=== PATIENT | male | born 1965 | race Hispanic/Latino ===

== ENCOUNTER 2018-07-13 15:18 | Emergency (ER) | payer SELFPAY ==
[2018-07-13 15:42] VITALS: RESP 20
--- NOTE | 2018-07-13 16:11 | C.PDOC ---
History Of Present Illness 53 year old male presents to the ED requesting ETOH detox. Admits his last ETOH use was this morning. Pt s/p withdrawal seizure prior to arrival. Denies other drug use, SI, HI, and any other associated symptoms. REQUESTING ETOH DETOX. LAST USE THIS MORNING. PS S/P WITHDRAWAL SZ MEAT SMOKER. DENIES OTHER DRUG USE. EXAM NONTOXIC HEENT NO TONGUE FASIC PSYCH CALM COOPERATIVE CLEAR SPEECH NO ACUTE INTOX; NO SI/SA NEURO NO TREMOR GAIT STEADY REMAINDER NEG <Siena Alicea - Last Filed: 07/13/18 18:47> History Per: Patient History/Exam Limitations: intoxication Modifying Factor(s): Alcohol Recent travel outside of the [place]: No <Siena Alicea - Last Filed: 07/13/18 18:47> <Olaf Faustin - Last Filed: 07/13/18 19:45> Time Seen by Provider: 07/13/18 16:05 Chief Complaint (Nursing): Substance Abuse Past Medical History Reviewed: Historical Data, Nursing Documentation, Vital Signs Vital Signs: Last Vital Signs Temp 98.2 F 07/13/18 15:41 Pulse 80 07/13/18 15:41 Resp 20 07/13/18 15:41 BP 157/94 H 07/13/18 15:41 Pulse Ox 117 H 07/13/18 15:41 Family History: States: Unknown Family Hx - Social History Hx Alcohol Use: Yes Hx Substance Use: No <Siena Alicea - Last Filed: 07/13/18 18:47> Vital Signs: Last Vital Signs Temp 98.4 F 07/13/18 19:33 Pulse 123 H 07/13/18 19:33 Resp 20 07/13/18 15:41 BP 159/97 H 07/13/18 19:33 Pulse Ox 96 07/13/18 19:33 <Olaf Faustin - Last Filed: 07/13/18 19:45> Review Of Systems Except As Marked, All Systems Reviewed And Found Negative. Neurological: Positive for: Seizures (withdrawal seizure.). Negative for: Other (no other drug use. ) Psych: Negative for: Suicidal ideation, Other (HI. ) <Siena Alicea - Last Filed: 07/13/18 18:47> Physical Exam - Physical Exam Appears: Non-toxic Skin: Warm, Dry Head: Atraumatic, Normacephalic Eye(s): bilateral: Normal Inspection Oral Mucosa: Moist Tongue: No Other (fasciculations.) Neck: Normal ROM Chest: Symmetrical, No Deformity Cardiovascular: Rhythm Regular, No Murmur Respiratory: Normal Breath Sounds, No Rales, No Rhonchi, No Wheezing, No Other (NARD) Gastrointestinal/Abdominal: Normal Exam, Soft, No Tenderness Extremity: Bilateral: Atraumatic, Normal Color And Temperature Neurological/Psych: Oriented x3, Normal Speech (clear speech. ), No Other (CALM. COOPERATIVE. NO ACUTE INTOX. NO TREMOR.) <Siena Alicea - Last Filed: 07/13/18 18:47> ED Course And Treatment - Laboratory Results Result Diagrams: 07/13/18 16:46 07/13/18 16:46 O2 Sat by Pulse Oximetry: 117 <Siena Alicea - Last Filed: 07/13/18 18:47> - Laboratory Results Result Diagrams: 07/13/18 16:46 07/13/18 16:46 Lab Results: Total Bilirubin 0.5 mg/dL (0.2-1.3) 07/13/18 16:46 AST 159 U/L (17-59) H 07/13/18 16:46 ALT 111 U/L (21-72) H 07/13/18 16:46 Alkaline Phosphatase 77 U/L (38-126) 07/13/18 16:46 Total Protein 7.7 g/dL (6.3-8.3) 07/13/18 16:46 Albumin 5.0 g/dL (3.5-5.0) 07/13/18 16:46 Globulin 2.8 gm/dL (2.2-3.9) 07/13/18 16:46 Albumin/Globulin Ratio 1.8 (1.0-2.1) 07/13/18 16:46 Urine Color Yellow (YELLOW) 07/13/18 17:06 Urine Clarity Hazy (Clear) 07/13/18 17:06 Urine pH 5.0 (5.0-8.0) 07/13/18 17:06 Ur Specific Bussey 1.016 (1.003-1.030) 07/13/18 17:06 Urine Protein 2+ mg/dL (NEGATIVE) H 07/13/18 17:06 Urine Glucose (UA) Normal mg/dL (Normal) 07/13/18 17:06 Urine Ketones 1+ mg/dL (NEGATIVE) H 07/13/18 17:06 Urine Blood 2+ (NEGATIVE) H 07/13/18 17:06 Urine Nitrate Negative (NEGATIVE) 07/13/18 17:06 Urine Bilirubin Negative (NEGATIVE) 07/13/18 17:06 Urine Urobilinogen Normal mg/dL (0.2-1.0) 07/13/18 17:06 Ur Leukocyte Esterase Neg Marissa/uL (Negative) 07/13/18 17:06 Urine WBC (Auto) 3 /hpf (0-5) 07/13/18 17:06 Urine RBC (Auto) 2 /hpf (0-3) 07/13/18 17:06 Hyaline Casts 11-20 /lpf (0-2) H 07/13/18 17:06 Reevaluation Time: 19:45 - Physician Consult Information Outcome Of Conversation: d/w Crisis, they defer detox for this pt. safe for d/c <Olaf Faustin - Last Filed: 07/13/18 19:45> Progress - Re-Evaluation Re-evaluation Note: 07/13/18 16:07 D/W AES WILL EVAL - Data Reviewed Data Reviewed: Lab, Old records <Siena Alicea - Last Filed: 07/13/18 18:47> Medical Decision Making Medical Decision Making: Initial plan: -Blood sent. -Ativan -Librium -Urinalysis <Siena Alicea - Last Filed: 07/13/18 18:47> Disposition Counseled Patient/Family Regarding: Studies Performed, Diagnosis - Disposition Disposition Time: 19:00 <Siena Alicea - Last Filed: 07/13/18 18:47> Doctor Will See Patient In The: Office <Olaf Faustin - Last Filed: 07/13/18 19:45> - Disposition Condition: GOOD Forms: [facility] (Salvadorean) - Clinical Impression Clinical Impression: Alcohol abuse - Scribe Statement The provider has reviewed the documentation as recorded by the Scribe (Julisa Mcdonald) Provider Attestation: All medical record entries made by the Scribe were at my direction and personally dictated by me. I have reviewed the chart and agree that the record accurately reflects my personal performance of the history, physical exam, medical decision making, and the department course for this patient. I have also personally directed, reviewed, and agree with the discharge instructions and disposition. <Siena Alicea - Last Filed: 07/13/18 18:47> Physician Patient Turnover Patient Signed Over To: Olaf Faustin Handoff Comments: VERONICA JACOBS, DISPO <Siena Alicea - Last Filed: 07/13/18 18:47>
[2018-07-13 16:49] LABS: BASO % 0.7 % (0.0-2.0); EOS # 0.1 K/uL (0.0-0.7); EOS % 0.8 % (0.0-4.0); HEMOGLOBIN 14.6 g/dL (12.0-18.0); LYMPH # 1.6 K/uL (1.0-4.3); LYMPH % 23.6 % (20.0-40.0); MEAN CELL VOLUME 103.3 fL (80.0-94.0); MEAN CORPUSCULAR HEMOGLOBIN 33.9 pg (27.0-31.0); MEAN CORPUSCULAR HGB CONC 32.8 g/dL (33.0-37.0); MEAN PLATELET VOLUME 7.1 fL (7.2-11.7); MONO # 0.3 K/uL (0.0-0.8); MONO % 5.1 % (0.0-10.0); NEUT # 4.7 K/uL (1.8-7.0); NEUT % 69.8 % (50.0-75.0); NRBC % 0.1 % (0.0-2.0); RBC 4.33 Mil/uL (4.40-5.90); RED CELL DISTRIBUTION WIDTH 13.2 % (11.5-14.5); WHITE BLOOD COUNT 6.7 K/uL (4.8-10.8)
[2018-07-13 17:02] LABS: ALB/GLOB RATIO 1.8 (1.0-2.1); ALT/SGPT 111 U/L (21-72); AST/SGOT 159 U/L (17-59); BLOOD UREA NITROGEN 11 mg/dL (9-20); CALCIUM 8.9 mg/dl (8.6-10.4); GFR NON-AFRICAN AMERICAN > 60
[2018-07-13 17:15] LABS: URINE BILIRUBIN NEGATIVE (NEGATIVE); URINE BLOOD 2+ (NEGATIVE); URINE CLARITY Hazy (Clear); URINE COLOR Yellow (YELLOW); URINE GLUCOSE (UA) NORMAL (Normal); URINE LEUKOCYTE ESTERASE NEG Leu/uL (Negative); URINE PROTEIN 2+ mg/dL (NEGATIVE); URINE UROBILINOGEN NORMAL mg/dL (0.2-1.0)
[2018-07-13 17:26] LABS: BARBITURATES, UR NEGATIVE (NEGATIVE); BENZODIAZEPINES, UR NEGATIVE (NEGATIVE); OPIATES, UR NEGATIVE (NEGATIVE); PHENCYCLIDINE, UR NEGATIVE (NEGATIVE)
[2018-07-13 19:35] VITALS: BP 159/97; PULSE 123; TEMP 98.4; O2SAT 96
== END 2018-07-13 20:19 | disposition home or self-care (01) ==
LOC: C.ER 15:18
DX: F10.10 Alcohol abuse, uncomplicated (principal)
CPT/HCPCS: 80053; 81001; 83735; 84100; 85025; 96372; 99284; G0480; J2060